=== PATIENT | female | born 1990 | race Caucasian/White ===

== ENCOUNTER → 2020-04-22 | Outpatient (CLI) | payer OTHER | LOC: LAB SHORT 11:30 → LAB 11:30 | PROVIDERS: Obstetrics & Gynecology | DX: Z01.419 Encounter for gynecological examination (general) (routine) without abnormal findings (principal) | CPT/HCPCS: G0123 ==

== ENCOUNTER → 2020-06-28 | Outpatient (CLI) | payer OTHER ==
[2020-06-28 14:26] LABS: CHOL/HDL RATIO 2.7; Cholesterol 158 mg/dL (50-200); HDL Cholesterol 58 mg/dL (>39); LDL/HDL RATIO 1.5; Low Density Lipoprotein Chol 89 mg/dL (0-110); Triglycerides 55 mg/dL (30-140); Very Low Density Lipoprot Chol 11 mg/dL (6-28)
[2020-07-01 13:09] LABS: FREE TESTOSTERONE(DIRECT) 4.3 pg/mL (0.0-4.2)
== END ==
LOC: LAB 09:34 → LAB SHORT 09:34
PROVIDERS: Obstetrics & Gynecology
DX: N92.6 Irregular menstruation, unspecified (principal)
CPT/HCPCS: 36415; 80061; 82627; 83036; 84402; 84403; 84443

== ENCOUNTER → 2021-10-29 | Outpatient (CLI) | payer OTHER | LOC: LAB SHORT 11:45 → LAB 11:45 | DX: M54.9 Dorsalgia, unspecified (principal) | CPT/HCPCS: 87086 ==

== ENCOUNTER → 2022-08-16 | Outpatient (CLI) | payer OTHER | END | disposition home or self-care (01) | LOC: LAB 13:20 → LAB SHORT 13:20 | DX: R30.0 Dysuria (principal) | CPT/HCPCS: 87086 ==

== ENCOUNTER → 2023-05-08 | Outpatient (CLI) | payer OTHER ==
[2023-05-09 16:07] LABS: HPV 16 Negative (Negative); HPV 18 Negative (Negative); HPV OTHER HR TYPES Negative (Negative)
== END ==
LOC: LAB 10:31 → LAB SHORT 10:31
PROVIDERS: Obstetrics & Gynecology
DX: Z01.419 Encounter for gynecological examination (general) (routine) without abnormal findings (principal)
CPT/HCPCS: 87624; G0145

== ENCOUNTER 2023-07-20 19:12 | Emergency (ER) | payer OTHER ==
[~2023-07-20] VITALS: Ht 175.3 cm; Wt 113.4 kg
[2023-07-20 19:38] VITALS: BP 131/84
[2023-07-20] MEDS ORDERED: EUTHYROX50 MC1 PO (19:43)
[2023-07-20] MEDS ORDERED: TOPI50 PO (19:44)
[2023-07-20] MEDS ORDERED: ALDACTONE100 MG PO (19:44)
[2023-07-20] MEDS ORDERED: OMEP20ER PO (19:44)
== END 2023-07-20 19:58 | disposition home or self-care (01) ==
LOC: ER 19:12
DX: K64.8 Other hemorrhoids (principal); E28.2 Polycystic ovarian syndrome; Z79.899 Other long term (current) drug therapy
CPT/HCPCS: 99284

== ENCOUNTER 2024-03-16 08:48 | Emergency (ER) | payer OTHER ==
[~2024-03-16] VITALS: Ht 175.3 cm; Wt 111.1 kg
[~2024-03-16 08:48] MED LIST: ALDACTONE100 MG PO; EUTHYROX50 MC1 PO; METF500 PO; NURTEC ODT75 MG PO; OMEP20ER PO; TOPI50 PO
[2024-03-16 08:53] VITALS: BP 119/77
[2024-03-16] MEDS ORDERED: Rabies Immune Globulin 150 IU / ML 2ML Vial IM ONE (09:10)
[2024-03-16] MEDS ORDERED: Rabies Vaccine (Pcec)/Pf 1 mL 2.5 Unit Kit IM ONE (09:10)
[2024-03-16] MEDS ORDERED: Rabies Immune Globulin/Pf 300 Unit/ML 1ML Vial IM SCH (09:40)
== END 2024-03-16 10:54 | disposition home or self-care (01) ==
LOC: ER 08:48
DX: Z29.14 Encounter for prophylactic rabies immune globulin (principal); Z23 Encounter for immunization; E03.9 Hypothyroidism, unspecified; K21.9 Gastro-esophageal reflux disease without esophagitis; G43.909 Migraine, unspecified, not intractable, without status migrainosus; Z20.3 Contact with and (suspected) exposure to rabies; Z79.890 Hormone replacement therapy; Z79.84 Long term (current) use of oral hypoglycemic drugs; Z79.899 Other long term (current) drug therapy; Z86.718 Personal history of other venous thrombosis and embolism
CPT/HCPCS: 90375; 90376; 90471; 90472

== ENCOUNTER 2024-03-20 07:51 | Emergency (ER) | payer OTHER ==
[~2024-03-20] VITALS: Ht 175.3 cm; Wt 111.1 kg
[2024-03-20] MEDS ORDERED: Rabies Vaccine (Pcec)/Pf 1 mL 2.5 Unit Kit IM ONE (08:10)
[2024-03-20 08:36] VITALS: BP 121/78
== END 2024-03-20 08:45 | disposition home or self-care (01) ==
LOC: ER 07:51
DX: Z23 Encounter for immunization (principal)
CPT/HCPCS: 90471

== ENCOUNTER 2024-03-27 08:09 | Emergency (ER) | payer OTHER ==
[~2024-03-27] VITALS: Ht 175.3 cm; Wt 111.1 kg
[2024-03-27] MEDS ORDERED: Rabies Vaccine (Pcec)/Pf 1 mL 2.5 Unit Kit IM ONE (08:20)
[2024-03-27 08:44] VITALS: BP 126/82
== END 2024-03-27 09:16 | disposition home or self-care (01) ==
LOC: ER 08:09
DX: Z29.14 Encounter for prophylactic rabies immune globulin (principal); Z79.899 Other long term (current) drug therapy; Z79.84 Long term (current) use of oral hypoglycemic drugs; K21.9 Gastro-esophageal reflux disease without esophagitis
CPT/HCPCS: 90471

== ENCOUNTER 2024-05-27 10:09 | Emergency (ER) | payer OTHER ==
[~2024-05-27] VITALS: Ht 175.3 cm; Wt 113.4 kg
[~2024-05-27 10:09] MED LIST changes: -HYDR1TAB94 PO; -ONDA4ODT MM
[2024-05-27 10:56] LABS: BASOPHILS ABSOLUTE AUTO 0.06 K/mm3 (0.00-0.23); BASOPHILS PERCENT AUTO 1 % (0-2); EOSINOPHILS PERCENT AUTO 2 % (0-6); Hematocrit 41.5 % (33.0-51.0); Hemoglobin 13.6 g/dL (11.5-16.0); IMMATURE GRAN ABSOLUTE AUTO 0.04 K/mm3 (0.00-0.10); IMMATURE GRAN PERCENT AUTO 1 % (0-1); LYMPHOCYTES ABSOLUTE AUTO 1.16 K/mm3 (0.84-5.20); LYMPHOCYTES PERCENT AUTO 14 % (21-46); MONOCYTES ABSOLUTE AUTO 0.59 K/mm3 (0.16-1.47); MONOCYTES PERCENT AUTO 7 % (4-13); Mean Corpuscular HGB 28.5 pg (26.0-34.0); Mean Corpuscular HGB Conc 32.8 g/dL (31.5-36.5); Mean Corpuscular Volume 87 fL (80-100); Mean Platelet Volume 10.2 fL (9.1-12.4); NEUTROPHILS ABSOLUTE AUTO 6.39 K/mm3 (1.96-9.15); NEUTROPHILS PERCENT AUTO 76 % (41-73); Platelet Count 248 K/mm3 (150-400); RDW Coefficient Variation 12.4 % (11.7-14.2); RDW Standard Deviation 39.4 fL (35.1-46.3); Red Blood Cell Count 4.78 M/mm3 (3.80-5.20); White Blood Cell Count 8.44 K/mm3 (4.00-11.30)
[2024-05-27] MEDS ORDERED: METF500 PO (11:29)
[2024-05-27 11:30] LABS: Albumin, Blood 3.6 g/dL (3.4-5.0); Bilirubin, Total 0.4 mg/dL (0.1-1.0); Bun/Creatinine Ratio 14.4 (12.0-20.0); Creatinine, Blood 1.04 mg/dL (0.40-1.00); Globulin, Blood 3.5 g/dL (2.2-4.0); Potassium, Blood 4.1 mmol/L (3.5-5.5); Total Protein, Blood 7.1 g/dL (6.4-8.2)
[2024-05-27] MEDS ORDERED: HYDROcodone 10-APAP 325 TAB PO ONE (11:50)
[2024-05-27] MEDS ORDERED: Ondansetron 4 MG SoluTab SL ONE (11:50)
[2024-05-27] MEDS ORDERED: NS 1,000 ML IV SCH (11:55)
[2024-05-27] MEDS ORDERED: Ketorolac Tromethamine 15mg Vial IV ONE (12:05)
[2024-05-27] MEDS ORDERED: Ondansetron HCl 2 MG / ML 2ML Vial IV ONE ×2 (12:05→13:15)
[2024-05-27 12:27] LABS: Source, Urine Condom Cath
[2024-05-27 12:32] LABS: Appearance, Urine Clear (Clear); Bilirubin, Urine Neg (Neg); Blood, Urine 2+ (Neg); Color, Urine Yellow (P-Yellow); Glucose Qualitative, Urine Neg (Neg); Ketones, Urine Neg (Neg); Leukocyte Esterase, Urine Neg (Neg); Nitrite, Urine Neg (Neg); Protein, Urine 1+ (Neg); Urobilinogen, Urine NORM (Normal)
[2024-05-27] MEDS ORDERED: ONDA4ODT MM (12:42)
[2024-05-27] MEDS ORDERED: HYDR1TAB94 PO (12:42)
[2024-05-27 13:02] LABS: Bacteria Rare /hpf; Hyaline Casts 0-2 /lpf (0-2); Mucus Light (0-Heavy); Squamous Epithelial Cells Few /hpf (Few); White Blood Cells, Urine 0-2 /hpf (0-5)
[2024-05-27] MEDS ORDERED: FentaNYL Citrate 50 MCG/ML 2 ML Injection IV ONE (13:15)
[2024-05-27 13:45] VITALS: BP 130/72
== END 2024-05-27 14:00 | disposition home or self-care (01) ==
LOC: ER 10:09
PROVIDERS: Physician Assistant
DX: N13.2 Hydronephrosis with renal and ureteral calculous obstruction (principal); K21.9 Gastro-esophageal reflux disease without esophagitis; Z79.84 Long term (current) use of oral hypoglycemic drugs; Z79.899 Other long term (current) drug therapy
CPT/HCPCS: 74177; 80053; 81001; 84703; 85025; 96361; 96374-59; 96375; 96376; 99284-25; A9270; J1885; J2405; J3010; J7030; Q9967

== ENCOUNTER → 2024-05-27 | Outpatient (CLI) | payer OTHER ==
[~2024-05-27] MED LIST changes: +HYDR1TAB94 PO; +ONDA4ODT MM
== END ==
LOC: LAB SHORT 09:38 → LAB 09:38
DX: R30.0 Dysuria (principal)
CPT/HCPCS: 87086

== ENCOUNTER 2024-08-04 14:14 | Emergency (ER) | payer OTHER ==
[~2024-08-04] VITALS: Ht 175.3 cm; Wt 111.1 kg
[~2024-08-04 14:14] MED LIST changes: +HYDR1TAB94 PO; +ONDA4ODT MM
[2024-08-04 15:20] LABS: BASOPHILS ABSOLUTE AUTO 0.05 K/mm3 (0.00-0.23); BASOPHILS PERCENT AUTO 1 % (0-2); EOSINOPHILS ABSOLUTE AUTO 0.28 K/mm3 (0.00-0.68); EOSINOPHILS PERCENT AUTO 4 % (0-6); Hematocrit 40.8 % (33.0-51.0); Hemoglobin 13.6 g/dL (11.5-16.0); IMMATURE GRAN ABSOLUTE AUTO 0.02 K/mm3 (0.00-0.10); IMMATURE GRAN PERCENT AUTO 0 % (0-1); LYMPHOCYTES ABSOLUTE AUTO 1.35 K/mm3 (0.84-5.20); LYMPHOCYTES PERCENT AUTO 19 % (21-46); MONOCYTES ABSOLUTE AUTO 0.57 K/mm3 (0.16-1.47); MONOCYTES PERCENT AUTO 8 % (4-13); Mean Corpuscular HGB 28.4 pg (26.0-34.0); Mean Corpuscular HGB Conc 33.3 g/dL (31.5-36.5); Mean Corpuscular Volume 85 fL (80-100); Mean Platelet Volume 10.4 fL (9.1-12.4); NEUTROPHILS ABSOLUTE AUTO 4.99 K/mm3 (1.96-9.15); NEUTROPHILS PERCENT AUTO 69 % (41-73); Platelet Count 283 K/mm3 (150-400); RDW Coefficient Variation 12.4 % (11.7-14.2); RDW Standard Deviation 38.5 fL (35.1-46.3); Red Blood Cell Count 4.79 M/mm3 (3.80-5.20); White Blood Cell Count 7.26 K/mm3 (4.00-11.30)
[2024-08-04 15:35] LABS: Source, Urine Clean Catch
[2024-08-04 15:37] LABS: Albumin, Blood 3.8 g/dL (3.4-5.0); Albumin/Globulin Ratio 1.1 (0.8-1.8); Bilirubin, Total 0.3 mg/dL (0.1-1.0); Bun/Creatinine Ratio 10.9 (12.0-20.0); Creatinine, Blood 0.83 mg/dL (0.40-1.00); Globulin, Blood 3.6 g/dL (2.2-4.0); Potassium, Blood 3.9 mmol/L (3.5-5.5); Total Protein, Blood 7.4 g/dL (6.4-8.2)
[2024-08-04 15:43] LABS: Appearance, Urine Clear (Clear); Bilirubin, Urine Neg (Neg); Blood, Urine Neg (Neg); Color, Urine Yellow (P-Yellow); Glucose Qualitative, Urine Neg (Neg); Ketones, Urine Neg (Neg); Leukocyte Esterase, Urine Neg (Neg); Nitrite, Urine Neg (Neg); Protein, Urine Neg (Neg); Urobilinogen, Urine NORM (Normal)
[2024-08-04 19:00] VITALS: BP 115/89
== END 2024-08-04 19:20 | disposition home or self-care (01) ==
LOC: ER 14:14
PROVIDERS: Student in an Organized Health Care Education/Training Program
DX: K80.20 Calculus of gallbladder without cholecystitis without obstruction (principal); K21.9 Gastro-esophageal reflux disease without esophagitis; Z79.84 Long term (current) use of oral hypoglycemic drugs; Z79.85 Long-term (current) use of injectable non-insulin antidiabetic drugs; Z79.899 Other long term (current) drug therapy; Z79.634 Long term (current) use of topoisomerase inhibitor
CPT/HCPCS: 76705; 80053; 81003; 81025; 83690; 85025; 99284-25

== ENCOUNTER → 2024-10-29 | Outpatient (CLI) | payer OTHER ==
[2024-11-03 15:06] LABS: CALCIUM, URINE - PER 24H 207 mg/d (100-250); CALCIUM, URINE - PER VOLUME 9.1 mg/dL; CHLORIDE, URINE - PER 24H 223 mmol/d (140-250); CHLORIDE, URINE - PER VOLUME 98 mmol/L; CITRIC ACID, URINE - PER 24H 598 mg/d (320-1240); CITRIC ACID,URINE - PER VOLUME 263 mg/L; CREATININE, URINE - PER 24H 2093 mg/d (700-1600); CREATININE, URINE - PER VOLUME 92 mg/dL; HOURS COLLECTED 24 hr; MAGNESIUM, URINE - PER VOLUME 3.4 mg/dL; MAGNESIUM, URINE PER 24H 77 mg/d (12-199); OXALATE, URINE - PER 24H 30 mg/d (13-40); OXALATE, URINE - PER VOLUME 13 mg/L; PH, URINE 6.69 (5.00-7.50); PHOSPHORUS, URINE - PER 24H 592 mg/d (400-1300); PHOSPHORUS, URINE - PER VOLUME 26 mg/dL; POTASSIUM, URINE - PER 24H 77 mmol/d (25-125); POTASSIUM, URINE - PER VOLUME 34 mmol/L; SODIUM, URINE - PER 24H 225 mmol/d (51-286); SODIUM, URINE - PER VOLUME 99 mmol/L; SULFATE, URINE - PER 24H 27 mmol/d (6-30); SULFATE, URINE - PER VOLUME 12 mmol/L; TOTAL VOLUME 2275 mL; URIC ACID, URINE - PER 24H 635 mg/d (250-750); URIC ACID, URINE - PER VOLUME 27.9 mg/dL; URINE SUPERSATURATION INTERP Normal; URINE SUPERSATURATION, CAHPO4 1.69; URINE SUPERSATURATION, CAOX 3.41
== END ==
LOC: LAB 10:23 → LAB SHORT 10:23
PROVIDERS: Physician Assistant
DX: N20.9 Urinary calculus, unspecified (principal)
CPT/HCPCS: 81003; 81050; 82131; 82140; 82340; 82436; 82507; 82570; 83735; 83935; 83945; 84105; 84133; 84300; 84392; 84560